=== PATIENT | female | born 1990 | race Caucasian/White ===

== ENCOUNTER 2017-08-16 03:30 | Inpatient (IN) | payer OTHER ==
[2017-08-16] MEDS ORDERED: ELECTROLYTE-148 SOLN 1,000 ML IV SCH (03:40)
[2017-08-16 04:36] LABS: BASOPHIL 0.3 % (0-2.0); EOSINOPHIL 0.2 % (0-4.5); MCHC 33.8 g/dl (32.0-36.0); MEAN CELL VOLUME 88.7 fl (80-96); NEUTROPHILS 80.1 % (42.8-82.8); PLATELET COUNT 268 K/MM3 (134-434); RDW 13.2 % (11.6-15.6); WHITE BLOOD COUNT 12.6 K/mm3 (4.0-10.0)
[2017-08-16 04:42] VITALS: BMI 31.6
[2017-08-16 05:02] LABS: INR 0.93 (0.82-1.09); PROTHROMBIN TIME (PATIENT) 10.2 SEC (9.98-11.88)
[2017-08-16 05:05] LABS: ACTIVATED PTT 27.1 SECONDS (26.9-34.4)
[2017-08-16 05:09] LABS: ANION GAP 8 (8-16); CALCIUM 8.5 mg/dL (8.5-10.1); CO2 23 mmol/L (21-32); CREATININE 0.6 mg/dL (0.55-1.02); GLUCOSE,RANDOM 85 mg/dL (74-106); SGPT/ALT 14 U/L (12-78); URIC ACID 3.5 mg/dL (2.6-7.2)
[2017-08-16] MEDS ORDERED: WITCH HAZEL 50% (TUCKS) 40 PAD/JAR PAD TP PRN (05:20)
[2017-08-16] MEDS ORDERED: BENZOCAINE 20% 57 GM BOTTLE TP PRN (05:20)
[2017-08-16] MEDS ORDERED: BISACODYL 10 MG SUPP.RECT RC PRN (05:20)
[2017-08-16] MEDS ORDERED: METHYLERGONOVINE MALEATE 0.2 MG/1 ML AMP IM PRN (05:20)
[2017-08-16] MEDS ORDERED: BENZOCAINE 28 GM HEMORRHOIDAL OINTMENT TP PRN (05:20)
--- NOTE | 2017-08-16 05:26 | HP ---
Past Medical History - Admission Chief Complaint: Labor pain History of Present Illness: 26 yo @39.6 weeks gestation, EDC 08/17/17, admitted for active labor. She denies any ROM nor vaginal bleeding. History Source: Patient Limitations to Obtaining History: No Limitations - Past Medical History ...: 4 ...Para: 3 ...Term: 3 ...: 0 ...Spon : 0 ...Induced : 0 ...Multiple Gestation: 0 ...LMP: 11/10/16 ... Weeks Gestation by Dates: 39.6 ...EDC by Dates: 08/17/17 ...EDC by Sono: 08/17/17 - Past Surgical History Past Surgical History: Yes: None Hx Myomectomy: No Hx Transabdominal Cerclage: No - Smoking History Smoking history: Never smoked Have you smoked in the past 12 months: No - Alcohol/Substance Use Hx Alcohol Use: No History of Substance Use: reports: None - Social History Usual Living Arrangement: Yes: With Spouse History of Recent Travel: No Home Medications - Allergies Allergies/Adverse Reactions: Allergies Allergy/AdvReac Type Severity Reaction Status Date / Time No Known Allergies Allergy Verified 08/15/17 00:06 - Home Medications Home Medications: Ambulatory Orders Vit #76/Iron,Carb/FA [Pnv 29-1 Tablet] 1 tab PO DAILY 08/15/17 Family Disease History - Family Disease History Family History: Unremarkable Review of Systems - Review of Systems Constitutional: reports: No Symptoms Eyes: reports: No Symptoms HENT: reports: No Symptoms Neck: reports: No Symptoms Cardiovascular: reports: No Symptoms Respiratory: reports: No Symptoms Gastrointestinal: reports: No Symptoms Genitourinary: reports: Pain Breasts: reports: No Symptoms Reported Musculoskeletal: reports: No Symptoms Integumentary: reports: No Symptoms Neurological: reports: No Symptoms Endocrine: reports: No Symptoms Hematology/Lymphatic: reports: No Symptoms Psychiatric: reports: No Symptoms Pain Intensity: 8 Physical Exam - Maternity Vital Signs: Vital Signs Temperature 98.3 F 08/16/17 03:30 Pulse Rate 70 08/16/17 03:30 Respiratory Rate 20 08/16/17 03:30 Blood Pressure 130/80 08/16/17 03:30 O2 Sat by Pulse Oximetry (%) Constitutional: Yes: Well Nourished Eyes: Yes: Conjunctiva Clear HENT: Yes: Atraumatic Neck: Yes: Supple Cardiovascular: Yes: Regular Rate and Rhythm Lungs: Clear to auscultation - Abdominal Exam/OB Number of Fetuses: Single Presentation: Vertex - Vaginal Exam/OB Dilatation (cm): 5 Effacement (%): 100 Amniotic Membrane Status: Intact Station: -1 - Physical Exam ...Motor Strength: WNL Psychiatric: Yes: Alert, Oriented - Labs Lab Results: CBC, BMP 08/16/17 04:15 08/16/17 04:15 Problem List - Problems (1) Pain during labor Code(s): O99.89 - OTH DISEASES AND CONDITIONS COMPL PREG/CHLDBRTH R52 - PAIN, UNSPECIFIED Assessment/Plan Active labor Admit to L&D Anticipate
[2017-08-16] MEDS ORDERED: DEXTROSE 5%-LACTATED RINGERS 1,000 ML IV SCH (05:30)
[2017-08-16] MEDS ORDERED: D5W-LR W/ 20 UNITS OXYTOCIN 1,000 ML IV SCH (05:30)
--- NOTE | 2017-08-16 05:32 | PN ---
Delivery - Delivery Vaginal Delivery: Spontaneous Type of Anesthesia: None Episiotomy/Laceration: None EBL (cc): 250 Delivery, Single - Feeding Plan Initial Plan: Elected not to breastfeed exclusively throughout hospitalization Remarks - Remarks Remarks: Normal spontaneous vaginal delivery of a live girl over intact perineum. Nose / Oropharynx suctioned @ perineum. Cord clamped and cut. Placenta expelled spontaneously intact.
[2017-08-16] MEDS: ACETAMINOPHEN 325 MG TABLET (FP) PO PRN ×2 (06:10→14:32)
[2017-08-16] MEDS: IBUPROFEN 600 MG TABLET (FP) PO PRN ×2 (06:10→14:31)
[2017-08-16] MEDS: PRENATAL VITAMINS W/ FOLIC ACID TABLET (FP) PO SCH (09:15)
[2017-08-16] MEDS: FERROUS SO4 325 MG TABLET (FP) PO SCH ×3 (09:15→18:21)
[2017-08-16] MEDS ORDERED: DIPHTH,PERTUSS(ACELL),TET 0.5 ML DISP.SYRIN IM ONE ×2 (10:00→15:15)
[2017-08-16] MEDS ORDERED: FLU VACCINE QUAD 60 MCG/0.5 ML (MDV 17-18) IM ONE (10:00)
[2017-08-16] MEDS ORDERED: TUBERCULIN PPD 5 TU/0.1ML SYRINGE (IN PATIENT USE ONLY) ID ONE (10:00)
[2017-08-17] MEDS: ACETAMINOPHEN 325 MG TABLET (FP) PO PRN ×3 (05:32→20:30)
[2017-08-17] MEDS: IBUPROFEN 600 MG TABLET (FP) PO PRN ×3 (05:34→20:31)
--- NOTE | 2017-08-17 07:16 | PN ---
Post Progress Note Post Day: 1 Type of Delivery: Vital Signs: Vital Signs Temperature 97.6 F 08/17/17 05:38 Pulse Rate 75 08/17/17 05:38 Respiratory Rate 18 08/17/17 05:38 Blood Pressure 116/74 08/17/17 05:38 O2 Sat by Pulse Oximetry (%) 99 08/16/17 09:00 Breast Exam: Yes: Soft Uterus: Yes: Fundus Firm Incision: Yes: Dressing dry and intact Abdomen/GI: Yes: Abdomen soft Lochia: Yes: Rubra Lochia, amount: Small Extremities: Yes: Calves non-tender Perineum: Yes: Intact Activity: Ambulating - Labs Labs: CBC WBC 12.6 K/mm3 (4.0-10.0) H 08/16/17 04:15 RBC 4.48 M/mm3 (3.60-5.2) 08/16/17 04:15 Hgb 13.5 GM/dL (10.7-15.3) 08/16/17 04:15 Hct 39.8 % (32.4-45.2) 08/16/17 04:15 MCV 88.7 fl (80-96) 08/16/17 04:15 MCH 30.0 pg (25.7-33.7) 08/16/17 04:15 MCHC 33.8 g/dl (32.0-36.0) 08/16/17 04:15 RDW 13.2 % (11.6-15.6) 08/16/17 04:15 Plt Count 268 K/MM3 (134-434) 08/16/17 04:15 MPV 9.0 fl (7.5-11.1) 08/16/17 04:15 Neutrophils % 80.1 % (42.8-82.8) 08/16/17 04:15 Lymphocytes % 14.2 % (8-40) 08/16/17 04:15 Monocytes % 5.2 % (3.8-10.2) 08/16/17 04:15 Eosinophils % 0.2 % (0-4.5) 08/16/17 04:15 Basophils % 0.3 % (0-2.0) 08/16/17 04:15 Haptoglobin 139 mg/dL (34-200) 08/16/17 04:15 Assessment/Plan doing well no issues or complaints oob reg diet
[2017-08-17 08:19] LABS: BASOPHIL 0.5 % (0-2.0); EOSINOPHIL 1.8 % (0-4.5); MCH 30.1 pg (25.7-33.7); MCHC 33.7 g/dl (32.0-36.0); MEAN CELL VOLUME 89.3 fl (80-96); MEAN PLT VOLUME 8.6 fl (7.5-11.1); NEUTROPHILS 68.5 % (42.8-82.8); PLATELET COUNT 225 K/MM3 (134-434); RDW 13.2 % (11.6-15.6); WHITE BLOOD COUNT 9.5 K/mm3 (4.0-10.0)
[2017-08-17] MEDS: PRENATAL VITAMINS W/ FOLIC ACID TABLET (FP) PO SCH (09:50)
[2017-08-17] MEDS: FERROUS SO4 325 MG TABLET (FP) PO SCH ×3 (09:50→18:26)
[2017-08-17] MEDS ORDERED: SENNOSIDES/DOCUSATE COMBO (SENNA PLUS) TABLET (UD) PO PRN (22:00)
[2017-08-18] MEDS: ACETAMINOPHEN 325 MG TABLET (FP) PO PRN ×2 (05:20→10:52)
[2017-08-18] MEDS: IBUPROFEN 600 MG TABLET (FP) PO PRN ×2 (05:21→10:51)
[2017-08-18] MEDS: PRENATAL VITAMINS W/ FOLIC ACID TABLET (FP) PO SCH (09:31)
[2017-08-18] MEDS: FERROUS SO4 325 MG TABLET (FP) PO SCH ×2 (09:31→11:52)
[2017-08-18 09:59] VITALS: BP 129/78; PULSE 66; TEMP 98.3
--- NOTE | 2017-08-18 21:39 | DS ---
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...Post : Yes: Uterus firm, Moderate lochia serosa Breast(s): Yes: WNL Musculoskeletal: Yes: WNL Extremities: Yes: WNL Integumentary: Yes: WNL Wound/Incision: Yes: Clean/Dry Neurological: Yes: Alert, Oriented ...Motor Strength: WNL Psychiatric: Yes: Alert, Oriented Labs: CBC, BMP 08/17/17 08:10 08/16/17 04:15 Delivery - Delivery Vaginal Delivery: Spontaneous Type of Anesthesia: None Episiotomy/Laceration: None EBL (cc): 250 Delivery, Single - Stages of Labor Date 1st Stage Initiatied: 08/16/17 Time 1st Stage Initiated: 01:00 Date 2nd Stage Initiated: 08/16/17 Time 2nd Stage Initiated: 05:00 Date of Delivery: 08/16/17 Time of Delivery: 05:06 Time Placenta Delivered: 05:10 - 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 Referrals: Keiko Dawkins MD [Staff Physician] - Disposition: HOME - Home Medications Comprehensive Discharge Medication List: Ambulatory Orders Vit #76/Iron,Carb/FA [Pnv 29-1 Tablet] 1 tab PO DAILY 08/15/17
== END 2017-08-18 12:00 | disposition home or self-care (01) | DRG 560 ==
LOC: JLDR 03:30 → J3W 08:32
PROVIDERS: ADMIT Obstetrics & Gynecology; ATTEND Obstetrics & Gynecology
PROC: 10E0XZZ Delivery of Products of Conception, External Approach (ICD-10-PCS; principal; 2017-08-16)
DX: O80 Encounter for full-term uncomplicated delivery (principal); Z3A.39 39 weeks gestation of pregnancy; Z37.0 Single live birth
CPT/HCPCS: 36415; 59409; 80048; 82977; 83010; 84450; 84460; 84550; 85025; 85610; 85730; 86593; 86850; 86900; 86901; 90688; 90715; G0008

== ENCOUNTER 2020-01-08 16:17 | Emergency (ER) | payer OTHER ==
[2020-01-08 16:29] VITALS: BMI 31.1
--- NOTE | 2020-01-08 16:29 | PDOC ---
Rapid Medical Evaluation Time Seen by Provider: 01/08/20 16:26 Medical Evaluation: Allergies Allergy/AdvReac Type Severity Reaction Status Date / Time No Known Allergies Allergy Verified 08/15/17 00:06 01/08/20 16:27 Pt c/o: diarrhea x 2 weeks, no travel, no fever, feels slightly weak, denies GI hx Pt on brief exam: vss, nid suprapubic tenderness pt ordered for: ua u preg, u cx , cbc, comp, mag, pt to proceed to the ED Discharge Disposition - Diagnosis Diarrhea - Referrals - Patient Instructions - Post Discharge Activity
[2020-01-08] MEDS ORDERED: FAMOTIDINE 20 MG/50 ML IVPB 20 MG/50 ML MG IVPB ONE ×2 (17:09→17:48)
[2020-01-08] MEDS ORDERED: METOCLOPRAMIDE HCL INJECTION 10 MG/2 ML VIAL IVPB ONE (17:09)
[2020-01-08] MEDS ORDERED: LACTATED RINGERS SOLUTION 1000 ML INFUS.BAG IV ONE (17:10)
[2020-01-08] MEDS ORDERED: ACETAMINOPHEN 1000 MG/100 ML VIAL (NON FORMULARY) IVPB ONE (17:24)
--- NOTE | 2020-01-08 17:30 | PDOC ---
History of Present Illness <Mesha Ro - Last Filed: 01/08/20 17:38> - General History Source: Patient Exam Limitations: Clinical Condition - History of Present Illness Initial Comments: 01/08/20 17:25 Patient with no significant past medical history present with complaint of 3- day history of worsening loose stools and now with headache this morning and nausea. Denies vomiting. Patient reported history of intermittent headaches which sometimes she gets nausea with a headache. Denies blood or mucus in stool. Denies abdominal pain, fever, chills, vaginal bleeding. Patient reported every time she eats anything she goes to the bathroom right away the past 3 days even when she drinks liquid foods. Denies recent travel or sick contact. Patient has not taken anything for symptoms. Patient reported headache as 6 out of 10 throbbing headache. Denies dizziness, photophobia, blurry vision or change in vision. Denies any other symptom Is this a multiple visit Asthma Patient?: No Timing/Duration: other (3 days) <Tristan Bright - Last Filed: 01/08/20 18:52> - General Chief Complaint: Pain Stated Complaint: DIARRHEA/HEADACHE Time Seen by Provider: 01/08/20 16:26 Past History <Mesha Ro - Last Filed: 01/08/20 17:38> - Past Medical History Asthma: No Cancer: No Cardiac Disorders: No COPD: No Diabetes: No HTN: Yes (1ST ) Seizures: No Thyroid Disease: No - Psycho Social/Smoking Cessation Hx Smoking History: Never smoked Have you smoked in the past 12 months: No Information on smoking cessation initiated: No Hx Alcohol Use: No Drug/Substance Use Hx: No Hx Substance Use Treatment: No <Tristan Bright - Last Filed: 01/08/20 18:52> - Past Medical History Allergies/Adverse Reactions: Allergies Allergy/AdvReac Type Severity Reaction Status Date / Time No Known Allergies Allergy Verified 01/08/20 16:29 Home Medications: Ambulatory Orders Vit,Calc76/Iron/Folic [Pnv 29-1 Tablet] 1 tab PO DAILY 08/15/17 Butalb/Acetaminophen/Caffeine [Fioricet 50-300-40 mg Capsule] 1 each PO Q6H PRN #20 capsule 01/08/20 Famotidine [Pepcid -] 40 mg PO DAILY #7 tablet 01/08/20 Loperamide HCl [Loperamide] 2 mg PO Q8H PRN #12 capsule 01/08/20 Mag Hydrox/Aluminum Hyd/Simeth [Maalox Advanced Suspension] 30 ml PO Q8H PRN # 200 ml 01/08/20 Review of Systems - Review of Systems Able to Perform ROS?: Yes Is the patient limited Urdu proficient: No Constitutional: No: See HPI, Chills, Fever, Malaise HEENTM: No: Symptoms Reported, See HPI, Eye Pain, Blurred Vision, Tearing, Recent change in vision, Double Vision, Cataracts, Ear Pain, Ocular Prothesis, Ear Discharge, Nose Pain, Nose Congestion, Tinnitus, Nose Bleeding, Hearing Loss , Throat Pain, Throat Swelling, Mouth Pain, Dental Problems, Difficulty Swallowing, Mouth Swelling, Other Respiratory: No: Symptoms reported, See HPI, Cough, Orthopnea, Shortness of Breath, SOB with Exertion, SOB at Rest, Stridor, Wheezing, Productive cough, Hemoptysis, Other Cardiac (ROS): No: Symptoms Reported, See HPI, Chest Pain, Edema, Irregular Heart Rate, Lightheadedness, Palpitations, Syncope, Chest Tightness, Other ABD/GI: Yes: Symptoms Reported, See HPI, Diarrhea, Nausea (resolved). No: Abd. Pain w/ defecation, Blood Streaked Bowels, Constipated, Difficulty Swallowing, Poor Appetite, Rectal Bleeding, Vomiting, Indigestion, Abdominal cramping : No: Symptoms Reported, Burning, Discharge, Frequency, Urgency Musculoskeletal: No: Symptoms Reported Integumentary: No: Symptoms Reported, Rash Neurological: Yes: Symptoms reported, See HPI, Headache. No: Numbness, Paresthesia, Dizziness All Other Systems: Reviewed and Negative <Tristan Bright - Last Filed: 01/08/20 18:52> *Physical Exam - Vital Signs Last Vital Signs Temp Pulse Resp BP Pulse Ox 97.7 F 65 19 129/77 100 01/08/20 16:27 01/08/20 16:27 01/08/20 16:27 01/08/20 16:27 01/08/20 16:27 <Mesha Ro - Last Filed: 01/08/20 17:38> - Vital Signs Last Vital Signs Temp Pulse Resp BP Pulse Ox 97.7 F 65 19 129/77 100 01/08/20 16:27 01/08/20 16:27 01/08/20 16:27 01/08/20 16:27 01/08/20 16:27 - Physical Exam 01/08/20 17:35 GENERAL: Well developed, well nourished. Awake and alert. No acute distress. HEENT: Normocephalic, atraumatic. PERRLA, EOMI. No conjunctival pallor. Sclera are non-icteric. Moist mucous membranes. Oropharynx is clear. NECK: Supple. Full ROM. CARDIOVASCULAR: Regular rate and rhythm. No murmurs, rubs, or gallops. Distal pulses are 2+ and symmetric. PULMONARY: No evidence of respiratory distress. Lungs clear to auscultation bilaterally. No wheezing, rales or rhonchi. ABDOMINAL: Soft. Non-tender. Non-distended. No rebound or guarding. No organomegaly. Normoactive bowel sounds. MUSCULOSKELETAL Normal range of motion at all joints. SKIN: Warm and dry. Normal capillary refill. No rashes. No jaundice. No cyanosis NEUROLOGICAL: Alert, awake, appropriate. Gait is normal without ataxia. PSYCHIATRIC: Cooperative. Good eye contact. Appropriate mood General Appearance: Yes: Nourished, Appropriately Dressed. No: Apparent Distress <Tristan Bright - Last Filed: 01/08/20 18:52> ED Treatment Course - LABORATORY CBC & Chemistry Diagram: 01/08/20 16:50 01/08/20 16:50 <Mesha Ro - Last Filed: 01/08/20 17:38> - LABORATORY CBC & Chemistry Diagram: 01/08/20 16:50 01/08/20 16:50 <Tristan Bright - Last Filed: 01/08/20 18:52> Medical Decision Making - Medical Decision Making The patient was seen and evaluated in conjunction with midlevel provider under my direct supervision, ancillary studies were reviewed. I agree with the plan as outlined with SALOME Bright. HPI, workup/dispo as outlined. VS reviewed, wnl. analgesia, hydration, reassess anticipate discharge, pcp followup, return precautions 01/08/20 17:38 <Mesha Ro - Last Filed: 01/08/20 17:38> - Medical Decision Making 01/08/20 17:27 Patient with no significant past medical history present with complaint of 3- day history of worsening loose stools and now with headache this morning and nausea. Denies vomiting. Patient reported history of intermittent headaches which sometimes she gets nausea with a headache. Denies blood or mucus in stool. Denies abdominal pain, fever, chills, vaginal bleeding. Patient reported every time she eats anything she goes to the bathroom right away the past 3 days even when she drinks liquid foods. Denies recent travel or sick contact. Patient has not taken anything for symptoms. Patient reported headache as 6 out of 10 throbbing headache. Denies dizziness, photophobia, blurry vision or change in vision. Denies any other symptom Clinical exam unremarkable with normal neuro exam. Patient walking with normal gait. Patient in no acute distress. Normal cardio lung exam. No abdominal tenderness on exam. Patient symptoms likely viral gastroenteritis with headache due to gastroenteritis versus migraine headache with aura. CBC, CMP lab ordered from triage. UA, urine hCG and urine culture ordered. IV hydration with lactated Ringer's 1 L ordered for hydration and Reglan 10 mg IV ordered for migraines. Tylenol 1 g IV ordered for headache. Treat based on lab results 01/08/20 18:46 CBC and chemistry lab unremarkable. UA urine hCG normal. Patient report improvement of headache and dizziness with hydration Reglan and Tylenol. Patient stable for discharge as symptoms likely viral gastroenteritis with headache Fioricet PRN for headache and Pepcid and Maalox for gastroenteritis advised to increase fluid intake with GI follow-up <Tristan Bright - Last Filed: 01/08/20 18:52> Discharge <Mesha Ro - Last Filed: 01/08/20 17:38> - Discharge Information Problems reviewed: Yes - Admission No <Tristan Bright - Last Filed: 01/08/20 18:52> - Discharge Information Clinical Impression/Diagnosis: Gastroenteritis Diarrhea Qualifiers: Diarrhea type: unspecified type Qualified Code(s): R19.7 - Diarrhea, unspecified Migraine headache without aura Qualifiers: Status migrainosus presence: without status migrainosus Intractability: not intractable Qualified Code(s): G43.009 - Migraine without aura, not intractable , without status migrainosus Condition: Improved Disposition: HOME - Additional Discharge Information Prescriptions: Butalb/Acetaminophen/Caffeine [Fioricet 50-300-40 mg Capsule] 1 each PO Q6H PRN #20 capsule PRN Reason: headache Famotidine [Pepcid -] 40 mg PO DAILY #7 tablet Loperamide HCl [Loperamide] 2 mg PO Q8H PRN #12 capsule PRN Reason: diarrhea Mag Hydrox/Aluminum Hyd/Simeth [Maalox Advanced Suspension] 30 ml PO Q8H PRN # 200 ml PRN Reason: abdominal discomfort - Follow up/Referral Referrals: Byron Caban MD [Staff Physician] - - Patient Discharge Instructions Patient Printed Discharge Instructions: DI for Viral Gastroenteritis -- Adult Additional Instructions: Your blood work was normal. Your symptoms likely caused by viral gastroenteritis with a headache. Take prescribed medication as needed for headaches. Follow-up referred neurologist if headache persists. Increase fluid intake
[2020-01-08 17:37] LABS: BASO % 0.6 % (0-2.0); EOS % 1.6 % (0-4.5); HEMATOCRIT 43.3 % (32.4-45.2); HEMOGLOBIN 14.6 GM/dL (10.7-15.3); MCH 30.6 pg (25.7-33.7); MCHC 33.7 g/dl (32.0-36.0); MEAN PLT VOLUME 8.4 fl (7.5-11.1); MONO % 8.1 % (3.8-10.2); NEUT % 66.7 % (42.8-82.8); PLATELET COUNT 327 K/MM3 (134-434); RBC 4.76 M/mm3 (3.60-5.2); RDW 13.1 % (11.6-15.6); WHITE BLOOD COUNT 8.9 K/mm3 (4.0-10.0)
[2020-01-08] MEDS ORDERED: ACETAMINOPHEN INJECTION 100 ML IVPB ONE (17:48)
[2020-01-08] MEDS ORDERED: METOCLOPRAMIDE HCL INJECTION 10 MG/2 ML VIAL ONE (17:48)
[2020-01-08 17:57] LABS: ALBUMIN 3.9 g/dl (3.4-5.0); BILIRUBIN,TOTAL 0.4 mg/dL (0.2-1); BLOOD UREA NITROGEN 9.8 mg/dL (7-18); CALCIUM 8.6 mg/dL (8.5-10.1); CREATININE 0.7 mg/dL (0.55-1.3); POTASSIUM 3.9 mmol/L (3.5-5.1); TOT PROT 7.8 g/dl (6.4-8.2)
[2020-01-08 19:10] VITALS: BP 136/73; PULSE 80; TEMP 98
[2020-01-08 23:20] LABS: PH,URINE 5.5 (5.0-8.0); URINE APPEARANCE CLOUDY; URINE BILIRUBIN NEGATIVE (NEGATIVE); URINE COLOR YELLOW; URINE GLUCOSE (UA) NEGATIVE (NEGATIVE); URINE KETONE NEGATIVE (NEGATIVE); URINE LEUK ESTERASE NEGATIVE (NEGATIVE); URINE NITRITE NEGATIVE (NEGATIVE); URINE PROTEIN NEGATIVE (NEGATIVE); URINE UROBILINOGEN 0.2 mg/dL (0.2-1.0)
== END 2020-01-08 19:11 | disposition home or self-care (01) ==
LOC: JER 16:17
PROC: 3E033GC Introduction of Other Therapeutic Substance into Peripheral Vein, Percutaneous Approach (ICD-10-PCS; principal; 2020-01-08)
PROC: 3E033GC Introduction of Other Therapeutic Substance into Peripheral Vein, Percutaneous Approach (ICD-10-PCS; 2020-01-08)
PROC: 3E033NZ Introduction of Analgesics, Hypnotics, Sedatives into Peripheral Vein, Percutaneous Approach (ICD-10-PCS; 2020-01-08)
DX: K52.9 Noninfective gastroenteritis and colitis, unspecified (principal); G43.009 Migraine without aura, not intractable, without status migrainosus
CPT/HCPCS: 36415; 80053; 81003; 83735; 84703; 85025; 87077; 87086; 96365; 96375; 99284-25; J0131

== ENCOUNTER 2021-07-27 05:54 | Emergency (ER) | payer OTHER ==
[2021-07-27 06:23] VITALS: BMI 32.0
[2021-07-27 08:28] LABS: URINE APPEARANCE Clear; URINE BILIRUBIN Negative (NEGATIVE); URINE COLOR Yellow; URINE GLUCOSE (UA) Negative (NEGATIVE); URINE KETONE Negative (NEGATIVE); URINE LEUK ESTERASE Trace (NEGATIVE); URINE NITRITE Negative (NEGATIVE); URINE PROTEIN Negative (NEGATIVE); URINE UROBILINOGEN 0.2 mg/dL (0.2-1.0)
[2021-07-27 08:38] LABS: HCG,QUALITATIVE URINE Negative
[2021-07-27] MEDS ORDERED: KETOROLAC TROMETHAMINE 60 MG/2 ML VIAL IM ONE (09:53)
[2021-07-27] MEDS ORDERED: KETOROLAC TROMETHAMINE 30 MG/1 ML VIAL ONE (10:35)
[2021-07-27 11:20] VITALS: BP 134/78; PULSE 60; TEMP 98.6
== END 2021-07-27 11:25 | disposition home or self-care (01) ==
LOC: JER 05:54
PROC: 3E023GC Introduction of Other Therapeutic Substance into Muscle, Percutaneous Approach (ICD-10-PCS; principal; 2021-07-27)
DX: N83.201 Unspecified ovarian cyst, right side (principal)
CPT/HCPCS: 36415; 76830-TC; 81003; 84703; 87070; 87077; 87086; 87205; 87491; 87591; 96372; 99284-25

== ENCOUNTER 2021-11-27 21:35 | Emergency (ER) | payer OTHER ==
[2021-11-27 21:41] VITALS: BP 124/78; PULSE 78; TEMP 97; BMI 32.3
== END 2021-11-27 22:42 | disposition home or self-care (01) ==
LOC: JER 21:35
DX: K08.89 Other specified disorders of teeth and supporting structures (principal)
CPT/HCPCS: 99283-25

== ENCOUNTER 2022-04-05 12:30 | Inpatient (IN) | payer OTHER ==
[2022-04-05] MEDS ORDERED: DEXTROSE 5%-LACTATED RINGERS 500 ML IV ONE (13:20)
[2022-04-05] MEDS ORDERED: DEXTROSE 5%-LACTATED RINGERS 1,000 ML IV SCH ×2 (14:20→16:20)
[2022-04-05] MEDS ORDERED: AMPICILLIN SODIUM 2 GM VIAL ONE (16:23)
[2022-04-05] MEDS ORDERED: AMPICILLIN - 2 GM in SODIUM CHLORIDE 100 ML IVPB ONE (16:24)
[2022-04-05] MEDS ORDERED: ELECTROLYTE-148 SOLN 1,000 ML IV SCH (16:30)
[2022-04-05 16:50] VITALS: BMI 34.5
[2022-04-05 17:11] LABS: BASO % 0.3 % (0-2.0); EOS % 0.3 % (0-4.5); HEMATOCRIT 39.9 % (32.4-45.2); HEMOGLOBIN 13.5 GM/dL (10.7-15.3); LYMPH % 16.3 % (8-40); MCH 29.8 pg (25.7-33.7); MCHC 33.8 g/dl (32.0-36.0); MEAN CELL VOLUME 88.3 fl (80-96); MEAN PLT VOLUME 8.3 fl (7.5-11.1); MONO % 6.1 % (3.8-10.2); PLATELET COUNT 273 10^3/uL (134-434); RBC 4.51 M/mm3 (3.60-5.2); RDW 13.1 % (11.6-15.6); WHITE BLOOD COUNT 11.4 K/mm3 (4.0-10.0)
[2022-04-05 17:26] LABS: INR 0.94 (0.83-1.09); PROTHROMBIN TIME (PATIENT) 10.8 SEC (9.7-13.0)
[2022-04-05 17:31] LABS: CALCIUM 8.9 mg/dL (8.5-10.1)
[2022-04-05 17:32] LABS: BLOOD UREA NITROGEN 7.3 mg/dL (7-18)
[2022-04-05 17:35] LABS: CREATININE 0.5 mg/dL (0.55-1.3)
[2022-04-05] MEDS: FENTANYL/BUPIVACAINE/NS/PF - PCEA - 50 ML DISP.SYRIN EP SCH (18:15)
[2022-04-05] MEDS ORDERED: FENTANYL/BUPIVACAINE/NS/PF - PCEA - 50 ML DISP.SYRIN EP ONE (18:17)
[2022-04-05] MEDS ORDERED: NALOXONE HCL 0.4 MG/ML VIAL IVPUSH PRN (18:24)
[2022-04-05] MEDS: AMPICILLIN - 1 GM in SODIUM CHLORIDE 100 ML IVPB SCH (20:40)
[2022-04-05] MEDS ORDERED: AMPICILLIN SODIUM 1 GM VIAL ONE (20:51)
[2022-04-05] MEDS ORDERED: OXYTOCIN 20 UNITS in 0.9% NS 20 UNIT/1,000 ML INFUS.BAG IV ONE (21:37)
[2022-04-05] MEDS ORDERED: WITCH HAZEL 50% (TUCKS) 40 PAD/JAR PAD TP PRN (22:02)
[2022-04-05] MEDS ORDERED: BENZOCAINE 28 GM HEMORRHOIDAL OINTMENT TP PRN (22:02)
[2022-04-05] MEDS ORDERED: BENZOCAINE 20% 57 GM BOTTLE TP PRN (22:02)
[2022-04-05] MEDS ORDERED: METHYLERGONOVINE MALEATE 0.2 MG/1 ML AMP IM PRN (22:02)
[2022-04-05] MEDS ORDERED: BISACODYL 10 MG SUPP.RECT RC PRN (22:02)
[2022-04-05] MEDS ORDERED: OXYTOCIN 20 UNITS in 0.9% NS 20 UNIT/1,000 ML INFUS.BAG IV SCH (22:15)
[2022-04-06] MEDS: FENTANYL/BUPIVACAINE/NS/PF - PCEA - 50 ML DISP.SYRIN EP SCH (01:19)
[2022-04-06] MEDS: AMPICILLIN - 1 GM in SODIUM CHLORIDE 100 ML IVPB SCH (01:20)
[2022-04-06] MEDS: IBUPROFEN 600 MG TABLET (FP) PO PRN ×3 (05:53→20:27)
[2022-04-06 07:58] LABS: BASO % 0.3 % (0-2.0); EOS % 0.3 % (0-4.5); HEMATOCRIT 38.5 % (32.4-45.2); HEMOGLOBIN 12.7 GM/dL (10.7-15.3); MCH 29.6 pg (25.7-33.7); MEAN CELL VOLUME 89.6 fl (80-96); MEAN PLT VOLUME 8.9 fl (7.5-11.1); MONO % 7.2 % (3.8-10.2); NEUT % 76.2 % (42.8-82.8); PLATELET COUNT 265 10^3/uL (134-434); WHITE BLOOD COUNT 15.9 K/mm3 (4.0-10.0)
[2022-04-06] MEDS: ACETAMINOPHEN 325 MG TABLET (FP) PO PRN ×2 (10:24→23:36)
[2022-04-06] MEDS: PRENATAL VITAMINS W/ FOLIC ACID TABLET (FP) PO SCH (10:24)
[2022-04-06 16:26] LABS: SARS-CoV-2 NAA Not Detected (Not Detected)
[2022-04-06] MEDS ORDERED: SENNOSIDES/DOCUSATE COMBO (SENNA PLUS) TABLET (UD) PO PRN (22:00)
[2022-04-07] MEDS: IBUPROFEN 600 MG TABLET (FP) PO PRN (08:08)
[2022-04-07 09:45] VITALS: BP 118/84; PULSE 89; TEMP 97.8
[2022-04-07] MEDS: PRENATAL VITAMINS W/ FOLIC ACID TABLET (FP) PO SCH (09:49)
== END 2022-04-07 11:00 | disposition home or self-care (01) | DRG 560 ==
LOC: JDEL 12:30 → JLDR 16:00 → J3W 04-06 00:23
PROVIDERS: ADMIT Obstetrics & Gynecology; ATTEND Obstetrics & Gynecology
PROC: 10E0XZZ Delivery of Products of Conception, External Approach (ICD-10-PCS; principal; 2022-04-05)
DX: O99.824 Streptococcus B carrier state complicating childbirth (principal); Z3A.39 39 weeks gestation of pregnancy; Z37.0 Single live birth
CPT/HCPCS: 36415; 59409; 80048; 85025; 85610; 86780; 86850; 86900; 86901; C9803-CS; U0003; U0005

== ENCOUNTER 2022-06-09 04:22 | Day surgery (SDC) | payer OTHER ==
[2022-06-07 09:16] VITALS: BMI 31.6
[2022-06-09] MEDS ORDERED: DEXAMETHASONE SOD PHOSPHATE 4 MG/1 ML VIAL ONE (12:26)
[2022-06-09] MEDS ORDERED: LIDOCAINE HCL/PF 2% SDV 5ML VIAL ONE (12:26)
[2022-06-09] MEDS ORDERED: ONDANSETRON 4 MG/2 ML VIAL ONE (12:26)
[2022-06-09] MEDS ORDERED: PROPOFOL 20 ML ONE (12:27)
[2022-06-09] MEDS ORDERED: MIDAZOLAM HCL 2 MG/2 ML SINGLE DOSE VIAL ONE (12:27)
[2022-06-09] MEDS ORDERED: ROCURONIUM BROMIDE 50 MG/5 ML SYRINGE ONE (13:09)
[2022-06-09] MEDS ORDERED: BUPIVACAINE HCL/PF 0.25% (2.5MG/ML) 10 ML VIAL ONE (13:28)
[2022-06-09] MEDS ORDERED: BUPIVACAINE HCL/PF 0.25% (2.5MG/ML) 10 ML VIAL IJ ONE (13:32)
[2022-06-09] MEDS ORDERED: ONDANSETRON 4 MG/2 ML VIAL IVPUSH PRN (13:42)
[2022-06-09] MEDS ORDERED: oxyCODONE HCL 5 MG TABLET PO PRN (13:42)
[2022-06-09] MEDS ORDERED: LACTATED RINGERS SOLUTION 1,000 ML IV SCH (13:45)
[2022-06-09] MEDS ORDERED: KETOROLAC TROMETHAMINE 30 MG/1 ML VIAL ONE (13:47)
[2022-06-09] MEDS ORDERED: GLYCOPYRROLATE 0.2 MG/1 ML VIAL ONE (13:47)
[2022-06-09] MEDS ORDERED: NEOSTIGMINE METHYLSULFATE 0.5 MG/1 ML - 10 ML MDV ONE (13:47)
[2022-06-09 16:25] VITALS: RESP 20; TEMP 97.8
[2022-06-09 17:50] VITALS: BP 116/62; PULSE 70
== END 2022-06-09 17:35 | disposition home or self-care (01) ==
LOC: JASU-SURG 04:22
PROVIDERS: ATTEND Obstetrics & Gynecology
PROC: 0UT74ZZ Resection of Bilateral Fallopian Tubes, Percutaneous Endoscopic Approach (ICD-10-PCS; principal; 2022-06-09 13:00)
DX: Z30.2 Encounter for sterilization (principal)
CPT/HCPCS: 88305-TC; 94760

== ENCOUNTER 2023-10-09 11:33 | Emergency (ER) | payer OTHER ==
[2023-10-09 11:41] VITALS: TEMP 98; BMI 33.8
[2023-10-09 14:32] VITALS: BP 125/80; PULSE 58; RESP 20
[2023-10-09] MEDS ORDERED: FAMOTIDINE 20 MG TABLET PO ONE (14:33)
[2023-10-09] MEDS ORDERED: DEXAMETHASONE SOD PHOSPHATE 10 MG/1 ML VIAL IM ONE (14:33)
[2023-10-09] MEDS ORDERED: DEXAMETHASONE SOD PHOSPHATE 10 MG/1 ML VIAL ONE (14:37)
[2023-10-09] MEDS ORDERED: FAMOTIDINE 20 MG TABLET ONE (14:37)
== END 2023-10-09 14:52 | disposition home or self-care (01) ==
LOC: JER 11:33 → JERFT 11:33
PROC: 3E023GC Introduction of Other Therapeutic Substance into Muscle, Percutaneous Approach (ICD-10-PCS; principal; 2023-10-09)
DX: R21 Rash and other nonspecific skin eruption (principal); L50.9 Urticaria, unspecified
CPT/HCPCS: 99284-25; J1100